=== PATIENT | male | born 1955 | race Caucasian/White ===

== ENCOUNTER 2019-02-01 15:19 | Emergency (ER) | payer OTHER ==
[~2019-02-01] VITALS: Ht 180.3 cm; Wt 83.9 kg
[2019-02-01] MEDS ORDERED: ATACAND32 MG (15:48)
[2019-02-01] MEDS ORDERED: FOSAMAX70 MG (15:49)
[2019-02-01] MEDS ORDERED: ZOCOR20 MG (15:49)
== END 2019-02-01 19:20 | disposition home or self-care (01) ==
LOC: ER 15:19
DX: I16.0 Hypertensive urgency (principal); I10 Essential (primary) hypertension